=== PATIENT | male | born 1960 | race Caucasian/White ===

== ENCOUNTER 2022-05-27 10:49 | Inpatient (IN) | payer OTHER ==
[2022-05-27 12:53] LABS: BASO % 0.9 % (0-2.0); EOS % 2.3 % (0-4.5); HEMATOCRIT 13.4 % (35.4-49); LYMPH % 7.3 % (8-40); MCH 31.8 pg (25.7-33.7); MCHC 35.8 g/dl (32.0-35.9); MEAN CELL VOLUME 88.9 fl (80-96); MEAN PLT VOLUME 9.7 fl (7.5-11.1); MONO % 2.3 % (3.8-10.2); NEUT % 87.2 % (42.8-82.8); PLATELET COUNT 204 10^3/uL (134-434); RBC 1.51 M/mm3 (4.00-5.60); RDW 13.7 % (11.9-15.9); WHITE BLOOD COUNT 14.6 K/mm3 (4.0-10.0)
[2022-05-27 12:56] LABS: HEMOGLOBIN 4.8 GM/dL (11.7-16.9)
[2022-05-27] MEDS ORDERED: PANTOPRAZOLE SODIUM 40 MG VIAL IVPUSH ONE (12:56)
[2022-05-27 12:59] LABS: INR 1.1 (0.83-1.09); PROTHROMBIN TIME (PATIENT) 12.8 SEC (9.7-13.0)
[2022-05-27 13:02] LABS: ACTIVATED PTT 28.5 SECONDS (25.2-36.5)
[2022-05-27] MEDS ORDERED: PANTOPRAZOLE SODIUM 40 MG/100 ML BAG IVPB ONE (13:04)
[2022-05-27 13:10] LABS: CHLORIDE 111 mmol/L (98-107); SODIUM 136 mmol/L (136-145)
[2022-05-27 13:13] LABS: ALBUMIN 3.3 g/dl (3.4-5.0); BLOOD UREA NITROGEN 70.7 mg/dL (7-18); CALCIUM 8.3 mg/dL (8.5-10.1); GLUCOSE,RANDOM 212 mg/dL (74-106)
[2022-05-27 13:14] LABS: CO2 17 mmol/L (21-32); LIPASE 385 U/L (73-393)
[2022-05-27 13:16] LABS: CREATININE 5.1 mg/dL (0.55-1.3); SGOT/AST 85 U/L (15-37); SGPT/ALT 23 U/L (13-61)
[2022-05-27 13:17] LABS: ANION GAP 8 MMOL/L (8-16); BILIRUBIN,TOTAL 5.7 mg/dL (0.2-1); LACTIC ACID 3.3 mmol/L (0.4-2.0); MAGNESIUM 0.9 mg/dL (1.8-2.4); TOT PROT 6.4 g/dl (6.4-8.2)
[2022-05-27 13:19] LABS: ALK PHOS 88 U/L (45-117)
[2022-05-27] MEDS ORDERED: MAGNESIUM SULF 50% (8.12 MEQ/2 ML-1 GM VIAL) IVPB ONE ×2 (13:20→13:24)
[2022-05-27] MEDS ORDERED: VANCOMYCIN 1 GM in D5W (PRE-DOCKED) 1,000 MG/250 ML IVPB ONE (13:28)
[2022-05-27] MEDS ORDERED: CEFEPIME HCL/D5W 2 GM/50 ML BAG IVPB ONE (13:28)
[2022-05-27] MEDS ORDERED: VANCOMYCIN/WATER FOR INJ (PEG) 1,000 MG/200 ML BAG IVPB ONE (13:48)
[2022-05-27] MEDS ORDERED: CEFEPIME 2 GM/100 ML BAG IVPB ONE (13:48)
[2022-05-27] MEDS ORDERED: MAGNESIUM 4GM/H20 - 4 GM/100 ML IVPB IVPB ONE (14:00)
[2022-05-27 14:31] LABS: INR 1.22 (0.83-1.09); PROTHROMBIN TIME (PATIENT) 14.1 SEC (9.7-13.0)
[2022-05-27 14:34] LABS: ACTIVATED PTT 28.7 SECONDS (25.2-36.5)
[2022-05-27 14:35] LABS: VENOUS BASE EXCESS -9.9 mmol/L (-2-2); VENOUS O2 SATURATION 38.1 % (70-80); VENOUS PCO2 28.8 mmHg (38-52); VENOUS PH 7.338 (7.310-7.410)
[2022-05-27 14:49] LABS: CHLORIDE 111 mmol/L (98-107); SODIUM 135 mmol/L (136-145)
[2022-05-27 14:52] LABS: ALBUMIN 3.3 g/dl (3.4-5.0); BLOOD UREA NITROGEN 76.4 mg/dL (7-18); CALCIUM 8.4 mg/dL (8.5-10.1); CO2 15 mmol/L (21-32); GLUCOSE,RANDOM 202 mg/dL (74-106); MAGNESIUM 1.1 mg/dL (1.8-2.4)
[2022-05-27 14:55] LABS: BILIRUBIN,DIRECT 0.5 mg/dL (0.0-0.2); CREATININE 5.1 mg/dL (0.55-1.3); SGOT/AST 118 U/L (15-37); SGPT/ALT 27 U/L (13-61); TOTAL IRON BINDING CAPACITY 303 ug/dL (250-450)
[2022-05-27 14:56] LABS: BILIRUBIN,TOTAL 5.6 mg/dL (0.2-1)
[2022-05-27 14:57] LABS: TOT PROT 6.3 g/dl (6.4-8.2)
[2022-05-27 14:58] LABS: ALK PHOS 85 U/L (45-117)
[2022-05-27 15:10] LABS: ANION GAP 8 MMOL/L (8-16)
[2022-05-27] MEDS ORDERED: DEXAMETHASONE SOD PHOSPHATE 10 MG/1 ML VIAL IVPUSH ONE (16:16)
[2022-05-27] MEDS ORDERED: FOLIC ACID 1 MG TABLET (FP) PO ONE (16:20)
[2022-05-27] MEDS ORDERED: DEXAMETHASONE SOD PHOSPHATE 10 MG/1 ML VIAL ONE (16:22)
[2022-05-27] MEDS ORDERED: CALCIUM GLUCONATE 10% - 1,000 MG/10 ML VIAL IVPUSH ONE (16:42)
[2022-05-27] MEDS ORDERED: ONDANSETRON 4 MG/2 ML VIAL IVPUSH ONE (16:42)
[2022-05-27] MEDS ORDERED: ALBUTEROL SO4 0.083% IH SOL 2.5 MG/3 ML VIAL.NEB. NEB ONE ×3 (16:42→21:55)
[2022-05-27] MEDS ORDERED: CALCIUM GLUC IN NACL, ISO-OSM 1 GM/50 ML BAG IVPB ONE (16:48)
[2022-05-27] MEDS ORDERED: ONDANSETRON 4 MG/2 ML VIAL ONE (16:48)
[2022-05-27 17:16] LABS: LDH 1052 U/L (87-246)
[2022-05-27] MEDS ORDERED: FOLIC ACID 1 MG TABLET (FP) PO SCH (17:45)
[2022-05-27] MEDS ORDERED: predniSONE 20 MG TABLET (UD) PO ONE (18:02)
[2022-05-27] MEDS: PANTOPRAZOLE SODIUM 40 MG VIAL IVPUSH SCH (18:50)
[2022-05-27] MEDS ORDERED: SODIUM CHLORIDE 500 ML IV STA (18:53)
[2022-05-27 21:07] LABS: BASO % 0.6 % (0-2.0); EOS % 0.5 % (0-4.5); HEMATOCRIT 20.2 % (35.4-49); HEMOGLOBIN 7.4 GM/dL (11.7-16.9); LYMPH % 3.9 % (8-40); MCH 32.3 pg (25.7-33.7); MCHC 36.4 g/dl (32.0-35.9); MEAN CELL VOLUME 88.6 fl (80-96); MEAN PLT VOLUME 9.9 fl (7.5-11.1); MONO % 2.5 % (3.8-10.2); NEUT % 92.5 % (42.8-82.8); PLATELET COUNT 168 10^3/uL (134-434); RBC 2.28 M/mm3 (4.00-5.60); RDW 13.9 % (11.9-15.9); WHITE BLOOD COUNT 10.1 K/mm3 (4.0-10.0)
[2022-05-27 21:28] LABS: CHLORIDE 108 mmol/L (98-107); SODIUM 134 mmol/L (136-145)
[2022-05-27 21:31] LABS: ALBUMIN 3.3 g/dl (3.4-5.0); BLOOD UREA NITROGEN 83.9 mg/dL (7-18); CALCIUM 7.9 mg/dL (8.5-10.1); CO2 13 mmol/L (21-32); GLUCOSE,RANDOM 367 mg/dL (74-106)
[2022-05-27 21:34] LABS: CREATININE 5.2 mg/dL (0.55-1.3); PHOSPHOROUS 2.8 mg/dL (2.5-4.9); SGOT/AST 238 U/L (15-37); SGPT/ALT 35 U/L (13-61)
[2022-05-27] MEDS: HEPARIN NA (PORCINE) 5,000 UNITS/ML 1ML VIAL SQ SCH (21:35)
[2022-05-27 21:36] LABS: BILIRUBIN,TOTAL 4.7 mg/dL (0.2-1); TOT PROT 6.6 g/dl (6.4-8.2)
[2022-05-27] MEDS: MUPIROCIN 2% TOPICAL OINTMENT FOR DECOLONIZATION NS SCH (21:36)
[2022-05-27 21:37] LABS: ALK PHOS 85 U/L (45-117)
[2022-05-27] MEDS: CHLORHEXIDINE GLUCONATE 4% CLEANSER FOR DECOLONIZATION TP SCH (21:37)
[2022-05-27 21:49] LABS: ANION GAP 13 MMOL/L (8-16)
[2022-05-27 21:54] LABS: EPI CELLS 9 /uL (0-25.1); HYALINE CASTS 1 /uL (0-3.1); PH,URINE 5.5 (5.0-8.0); URINE APPEARANCE CLEAR; URINE BACTERIA 4 /uL (0-1359); URINE BILIRUBIN NEGATIVE (NEGATIVE); URINE COLOR RED; URINE GLUCOSE (UA) 2+ (NEGATIVE); URINE KETONE 1+ (NEGATIVE); URINE LEUK ESTERASE TRACE (NEGATIVE); URINE NITRITE NEGATIVE (NEGATIVE); URINE PROTEIN 3+ (NEGATIVE); URINE RBC 31 /uL (0-23.9); URINE UROBILINOGEN 0.2 mg/dL (0.2-1.0); URINE WBC 14 /uL (0-25.8)
[2022-05-27] MEDS ORDERED: INSULIN REGULAR HUMAN 100 UNITS/ML *VIAL IVPUSH ONE (21:58)
[2022-05-27] MEDS ORDERED: MUPIROCIN 2% TOPICAL OINTMENT FOR DECOLONIZATION NS SCH (22:00)
[2022-05-27] MEDS ORDERED: CHLORHEXIDINE GLUCONATE 4% CLEANSER FOR DECOLONIZATION TP SCH (22:00)
[2022-05-27] MEDS ORDERED: INSULIN SLIDING SCALE (NOVOLOG) 1 VIAL SQ SCH (22:00)
[2022-05-27] MEDS: CALCIUM GLUC IN NACL, ISO-OSM 1 GM/50 ML BAG IVPB SCH ×2 (22:04→22:38)
[2022-05-27] MEDS: SODIUM BICARBONATE 8.4% 50 MEQ/50 ML DISP.SYRIN IVPUSH SCH ×3 (22:04→23:02)
[2022-05-27 22:09] LABS: LACTIC ACID 2.6 mmol/L (0.4-2.0)
[2022-05-27] MEDS ORDERED: DEXTROSE 50%-WATER 25 GM/50 ML DISP.SYRIN IVPUSH PRN (22:10)
[2022-05-27 22:13] LABS: ANISOCYTOSIS 1+; PLATELET ESTIMATE ADEQUATE
[2022-05-27 22:34] LABS: YEAST NONE SEEN (NEGATIVE)
[2022-05-27] MEDS ORDERED: FUROSEMIDE 40 MG/4 ML INJECTABLE VIAL IVPUSH ONE (22:50)
[2022-05-27] MEDS ORDERED: SODIUM CHLORIDE 0.45% 1,000 ML with SODIUM BICARBONATE 8.4% - 150 MEQ IV SCH (23:00)
[2022-05-28] MEDS ORDERED: INSULIN (NOVOLOG) ASPART 100 UNITS/ML 10ML VIAL SQ ONE (00:05)
[2022-05-28 01:16] LABS: CALCIUM 8.4 mg/dL (8.5-10.1)
[2022-05-28 01:17] LABS: BLOOD UREA NITROGEN 85.5 mg/dL (7-18); MAGNESIUM 1.9 mg/dL (1.8-2.4)
[2022-05-28 01:19] LABS: URIC ACID 8.6 mg/dL (2.6-7.2)
[2022-05-28 01:20] LABS: PHOSPHOROUS 2.2 mg/dL (2.5-4.9)
[2022-05-28 01:21] LABS: BILIRUBIN,TOTAL 3.2 mg/dL (0.2-1)
[2022-05-28] MEDS ORDERED: INSULIN REGULAR HUMAN 100 UNITS/ML *VIAL* (FOR IVP) IVPUSH ONE (01:26)
[2022-05-28] MEDS ORDERED: SODIUM BICARBONATE 8.4% 50 MEQ/50 ML DISP.SYRIN IVPUSH ONE (01:28)
[2022-05-28] MEDS ORDERED: MAGNESIUM SULF 50% (8.12 MEQ/2 ML-1 GM VIAL) IVPB ONE (01:29)
[2022-05-28] MEDS ORDERED: INSULIN REGULAR 100 UNITS in SODIUM CHLORIDE 99 ML IVPB SCH ×2 (01:30→07:10)
[2022-05-28 01:39] LABS: LDH 1556 U/L (87-246)
[2022-05-28 01:47] LABS: HEMATOCRIT 17.2 % (35.4-49); MCH 31.9 pg (25.7-33.7); MCHC 37.3 g/dl (32.0-35.9); MEAN CELL VOLUME 85.3 fl (80-96); MEAN PLT VOLUME 10.2 fl (7.5-11.1); PLATELET COUNT 149 10^3/uL (134-434); RBC 2.02 M/mm3 (4.00-5.60); RDW 14.2 % (11.9-15.9); WHITE BLOOD COUNT 8.1 K/mm3 (4.0-10.0)
[2022-05-28 01:49] LABS: ADD RBC MORPHOLOGY YES; HEMOGLOBIN 6.4 GM/dL (11.7-16.9)
[2022-05-28] MEDS ORDERED: CALCIUM GLUC IN NACL, ISO-OSM 1 GM/50 ML BAG IVPB ONE (02:12)
[2022-05-28 04:48] LABS: ANISOCYTOSIS 2+; MACROCYTOSIS 0; OVALOCYTE 1+; TEAR DROP CELLS 1+
[2022-05-28] MEDS: HEPARIN NA (PORCINE) 5,000 UNITS/ML 1ML VIAL SQ SCH ×3 (05:56→21:20)
[2022-05-28] MEDS ORDERED: DEXTROSE 5%-WATER - 1,000 ML with SODIUM BICARBONATE 8.4% - 150 MEQ IV SCH (07:30)
[2022-05-28 07:35] LABS: HEMATOCRIT 21.4 % (35.4-49); HEMOGLOBIN 7.8 GM/dL (11.7-16.9); MCH 30.8 pg (25.7-33.7); MCHC 36.6 g/dl (32.0-35.9); MEAN CELL VOLUME 84.2 fl (80-96); MEAN PLT VOLUME 10.1 fl (7.5-11.1); PLATELET COUNT 173 10^3/uL (134-434); RBC 2.54 M/mm3 (4.00-5.60); RDW 13.8 % (11.9-15.9); WHITE BLOOD COUNT 12.7 K/mm3 (4.0-10.0)
[2022-05-28 07:45] LABS: INR 1.12 (0.83-1.09)
[2022-05-28 07:48] LABS: ACTIVATED PTT 25.4 SECONDS (25.2-36.5)
[2022-05-28 08:13] LABS: CALCIUM 9.2 mg/dL (8.5-10.1)
[2022-05-28 08:14] LABS: ALBUMIN 3.1 g/dl (3.4-5.0); MAGNESIUM 2.4 mg/dL (1.8-2.4)
[2022-05-28] MEDS: INSULIN REGULAR 100 UNITS in SODIUM CHLORIDE 99 ML IVPB SCH ×2 (08:15→12:53)
[2022-05-28 08:17] LABS: CREATININE 5.3 mg/dL (0.55-1.3); PHOSPHOROUS 1.9 mg/dL (2.5-4.9)
[2022-05-28 08:19] LABS: BILIRUBIN,TOTAL 2.4 mg/dL (0.2-1); TOT PROT 6.2 g/dl (6.4-8.2)
[2022-05-28] MEDS: SODIUM BICARBONATE 8.4% - 150 MEQ in DEXTROSE 5%-WATER - 1,000 ML IV SCH ×3 (09:07→22:44)
[2022-05-28] MEDS: predniSONE 20 MG TABLET (UD) PO SCH (09:21)
[2022-05-28] MEDS: MUPIROCIN 2% TOPICAL OINTMENT FOR DECOLONIZATION NS SCH ×2 (09:22→21:20)
[2022-05-28] MEDS: PANTOPRAZOLE SODIUM 40 MG VIAL IVPUSH SCH (09:22)
[2022-05-28 10:15] LABS: ANISOCYTOSIS 0; MACROCYTOSIS 0
[2022-05-28] MEDS ORDERED: INSULIN REGULAR HUMAN 100 UNITS/ML *VIAL IVPUSH ONE (10:19)
[2022-05-28] MEDS: CEFTRIAXONE 1 GM in DEXTROSE 5%-WATER - 50 ML IVPB SCH (16:15)
[2022-05-28] MEDS: FOLIC ACID 1 MG TABLET (FP) PO SCH (17:21)
[2022-05-28] MEDS: CHLORHEXIDINE GLUCONATE 4% CLEANSER FOR DECOLONIZATION TP SCH (21:20)
[2022-05-28] MEDS: INSULIN (LEVEMIR) 100 UNITS/ML UNITS SQ SCH (21:22)
[2022-05-28] MEDS: INSULIN SLIDING SCALE (NOVOLOG) 1 VIAL SQ SCH (21:22)
[2022-05-28 21:59] LABS: HEMATOCRIT 19.4 % (35.4-49); MCH 30.1 pg (25.7-33.7); MCHC 36.2 g/dl (32.0-35.9); MEAN CELL VOLUME 83.3 fl (80-96); PLATELET COUNT 189 10^3/uL (134-434); RBC 2.33 M/mm3 (4.00-5.60); RDW 14.3 % (11.9-15.9); WHITE BLOOD COUNT 15.2 K/mm3 (4.0-10.0)
[2022-05-28 22:07] LABS: CALCIUM 8.3 mg/dL (8.5-10.1)
[2022-05-28 22:08] LABS: BLOOD UREA NITROGEN 82.2 mg/dL (7-18); MAGNESIUM 1.8 mg/dL (1.8-2.4)
[2022-05-28 22:11] LABS: BILIRUBIN,DIRECT 0.2 mg/dL (0.0-0.2); CREATININE 5.4 mg/dL (0.55-1.3); PHOSPHOROUS 1.8 mg/dL (2.5-4.9)
[2022-05-28 22:12] LABS: BILIRUBIN,TOTAL 0.9 mg/dL (0.2-1); TOT PROT 5.9 g/dl (6.4-8.2)
[2022-05-29] MEDS: SODIUM CHLORIDE 1,000 ML IV SCH
[2022-05-29] MEDS: HEPARIN NA (PORCINE) 5,000 UNITS/ML 1ML VIAL SQ SCH ×3 (06:25→21:25)
[2022-05-29] MEDS: INSULIN SLIDING SCALE (NOVOLOG) 1 VIAL SQ SCH ×4 (06:30→21:27)
[2022-05-29 07:15] LABS: BASO % 0.2 % (0-2.0); EOS % 0.1 % (0-4.5); HEMOGLOBIN 7.1 GM/dL (11.7-16.9); LYMPH % 8.4 % (8-40); MCH 31.3 pg (25.7-33.7); MCHC 37.4 g/dl (32.0-35.9); MEAN CELL VOLUME 83.5 fl (80-96); MONO % 6.9 % (3.8-10.2); NEUT % 84.4 % (42.8-82.8); PLATELET COUNT 215 10^3/uL (134-434); RBC 2.28 M/mm3 (4.00-5.60); RDW 14.3 % (11.9-15.9); WHITE BLOOD COUNT 15.6 K/mm3 (4.0-10.0)
[2022-05-29] MEDS: SODIUM BICARBONATE 8.4% - 150 MEQ in DEXTROSE 5%-WATER - 1,000 ML IV SCH (07:26)
[2022-05-29 07:30] LABS: CHLORIDE 102 mmol/L (98-107); SODIUM 137 mmol/L (136-145)
[2022-05-29 07:33] LABS: ANION GAP 7 MMOL/L (8-16); BLOOD UREA NITROGEN 78.2 mg/dL (7-18); CO2 27 mmol/L (21-32); GLUCOSE,RANDOM 177 mg/dL (74-106); MAGNESIUM 1.7 mg/dL (1.8-2.4)
[2022-05-29 07:36] LABS: CREATININE 5.1 mg/dL (0.55-1.3); PHOSPHOROUS 3.3 mg/dL (2.5-4.9)
[2022-05-29 07:37] LABS: BILIRUBIN,DIRECT 0.2 mg/dL (0.0-0.2)
[2022-05-29 07:39] LABS: BILIRUBIN,TOTAL 0.8 mg/dL (0.2-1)
[2022-05-29 07:42] LABS: LDH 740 U/L (87-246)
[2022-05-29] MEDS: CEFTRIAXONE 1 GM in DEXTROSE 5%-WATER - 50 ML IVPB SCH (09:17)
[2022-05-29] MEDS: FOLIC ACID 1 MG TABLET (FP) PO SCH (09:19)
[2022-05-29] MEDS: PANTOPRAZOLE SODIUM 40 MG VIAL IVPUSH SCH (09:19)
[2022-05-29] MEDS: predniSONE 20 MG TABLET (UD) PO SCH (09:19)
[2022-05-29] MEDS: MUPIROCIN 2% TOPICAL OINTMENT FOR DECOLONIZATION NS SCH ×2 (09:20→21:25)
[2022-05-29] MEDS ORDERED: MAGNESIUM 1GM/D5W - 1 GM/100 ML IVPB IVPB ONE (10:00)
[2022-05-29] MEDS: INSULIN REGULAR 100 UNITS in SODIUM CHLORIDE 99 ML IVPB SCH (15:37)
[2022-05-29] MEDS: INSULIN (LEVEMIR) 100 UNITS/ML UNITS SQ SCH (21:26)
[2022-05-29] MEDS: CHLORHEXIDINE GLUCONATE 4% CLEANSER FOR DECOLONIZATION TP SCH (21:26)
[2022-05-29] MEDS: MELATONIN 1 MG TABLET PO SCH (21:27)
[2022-05-29] MEDS: ATORVASTATIN CA 80 MG TABLET (FP) PO SCH (21:27)
[2022-05-30] MEDS ORDERED: INSULIN (NOVOLOG) ASPART 100 UNITS/ML 10ML VIAL SQ ONE (01:42)
[2022-05-30] MEDS: SODIUM CHLORIDE 1,000 ML IV SCH ×2 (02:13→22:12)
[2022-05-30] MEDS: HEPARIN NA (PORCINE) 5,000 UNITS/ML 1ML VIAL SQ SCH ×3 (06:04→22:12)
[2022-05-30] MEDS: INSULIN SLIDING SCALE (NOVOLOG) 1 VIAL SQ SCH ×4 (06:04→22:15)
[2022-05-30] MEDS ORDERED: INSULIN (LEVEMIR) 100 UNITS/ML UNITS SQ SCH (07:00)
[2022-05-30 07:09] LABS: BASO % 0.2 % (0-2.0); EOS % 0.2 % (0-4.5); HEMATOCRIT 18.8 % (35.4-49); LYMPH % 10.2 % (8-40); MCH 30.5 pg (25.7-33.7); MCHC 35.5 g/dl (32.0-35.9); MEAN CELL VOLUME 85.9 fl (80-96); MEAN PLT VOLUME 9.6 fl (7.5-11.1); MONO % 6.8 % (3.8-10.2); NEUT % 82.6 % (42.8-82.8); PLATELET COUNT 217 10^3/uL (134-434); RBC 2.18 M/mm3 (4.00-5.60); RDW 14.6 % (11.9-15.9)
[2022-05-30 07:19] LABS: ACTIVATED PTT 23.1 SECONDS (25.2-36.5); ALBUMIN 2.7 g/dl (3.4-5.0); BLOOD UREA NITROGEN 71.5 mg/dL (7-18); MAGNESIUM 1.7 mg/dL (1.8-2.4)
[2022-05-30 07:22] LABS: CREATININE 4.5 mg/dL (0.55-1.3); PHOSPHOROUS 3.6 mg/dL (2.5-4.9)
[2022-05-30 07:23] LABS: BILIRUBIN,TOTAL 0.5 mg/dL (0.2-1)
[2022-05-30 07:24] LABS: TOT PROT 5.5 g/dl (6.4-8.2)
[2022-05-30 07:38] LABS: HEMOGLOBIN 6.7 GM/dL (11.7-16.9)
[2022-05-30] MEDS: CEFTRIAXONE 1 GM in DEXTROSE 5%-WATER - 50 ML IVPB SCH (09:31)
[2022-05-30] MEDS: predniSONE 20 MG TABLET (UD) PO SCH (09:31)
[2022-05-30] MEDS: PANTOPRAZOLE 40 MG TABLET PO SCH (09:31)
[2022-05-30] MEDS: MUPIROCIN 2% TOPICAL OINTMENT FOR DECOLONIZATION NS SCH (09:32)
[2022-05-30] MEDS: INSULIN (LEVEMIR) 100 UNITS/ML UNITS SQ SCH ×2 (09:32→22:13)
[2022-05-30] MEDS ORDERED: FOLIC ACID 1 MG TABLET (FP) PO SCH (10:00)
[2022-05-30 14:39] LABS: INR 1.05 (0.83-1.09); PROTHROMBIN TIME (PATIENT) 12.2 SEC (9.7-13.0)
[2022-05-30 16:35] LABS: EPI CELLS 4 /uL (0-25.1); HYALINE CASTS 0 /uL (0-3.1); PH,URINE 7.5 (5.0-8.0); URINE APPEARANCE CLEAR; URINE BACTERIA 1 /uL (0-1359); URINE BILIRUBIN NEGATIVE (NEGATIVE); URINE COLOR YELLOW; URINE GLUCOSE (UA) NEGATIVE (NEGATIVE); URINE KETONE NEGATIVE (NEGATIVE); URINE LEUK ESTERASE NEGATIVE (NEGATIVE); URINE NITRITE NEGATIVE (NEGATIVE); URINE PROTEIN TRACE (NEGATIVE); URINE RBC 25 /uL (0-23.9); URINE UROBILINOGEN 0.2 mg/dL (0.2-1.0); URINE WBC 7 /uL (0-25.8)
[2022-05-30] MEDS: MELATONIN 1 MG TABLET PO SCH (22:12)
[2022-05-30] MEDS: ATORVASTATIN CA 80 MG TABLET (FP) PO SCH (22:12)
[2022-05-31 03:21] LABS: CMV IgM < 30.0 AU/mL (0.0-29.9)
[2022-05-31] MEDS: HEPARIN NA (PORCINE) 5,000 UNITS/ML 1ML VIAL SQ SCH ×3 (06:55→22:31)
[2022-05-31] MEDS: INSULIN SLIDING SCALE (NOVOLOG) 1 VIAL SQ SCH ×4 (06:56→22:38)
[2022-05-31 09:07] LABS: HEMATOCRIT 23.6 % (35.4-49); HEMOGLOBIN 8.3 GM/dL (11.7-16.9); MCH 30.5 pg (25.7-33.7); MCHC 35.1 g/dl (32.0-35.9); MEAN PLT VOLUME 9.3 fl (7.5-11.1); PLATELET COUNT 245 10^3/uL (134-434); RBC 2.71 M/mm3 (4.00-5.60); RDW 14.8 % (11.9-15.9); WHITE BLOOD COUNT 11.8 K/mm3 (4.0-10.0)
[2022-05-31 09:39] LABS: BLOOD UREA NITROGEN 57.2 mg/dL (7-18)
[2022-05-31 09:40] LABS: ALBUMIN 2.7 g/dl (3.4-5.0)
[2022-05-31 09:41] LABS: BILIRUBIN,TOTAL 0.6 mg/dL (0.2-1); TOT PROT 5.7 g/dl (6.4-8.2)
[2022-05-31 09:43] LABS: CREATININE 3.8 mg/dL (0.55-1.3)
[2022-05-31] MEDS: PANTOPRAZOLE 40 MG TABLET PO SCH (11:02)
[2022-05-31] MEDS: FOLIC ACID 1 MG TABLET (FP) PO SCH (11:02)
[2022-05-31] MEDS: INSULIN (LEVEMIR) 100 UNITS/ML UNITS SQ SCH ×2 (11:03→22:37)
[2022-05-31] MEDS: predniSONE 20 MG TABLET (UD) PO SCH (11:03)
[2022-05-31] MEDS: SODIUM CHLORIDE 1,000 ML IV SCH (11:17)
[2022-05-31] MEDS: SODIUM CHLORIDE 0.45% 1,000 ML IV SCH (16:00)
[2022-05-31 17:07] LABS: PARV B19 IGG 5.2 index (0.0-0.8); PARV B19 IGM 0.1 index (0.0-0.8)
[2022-05-31] MEDS: MELATONIN 1 MG TABLET PO SCH (22:36)
[2022-05-31] MEDS: ATORVASTATIN CA 80 MG TABLET (FP) PO SCH (22:36)
[2022-05-31 23:07] LABS: ATYPICAL pANCA <1:20 titer (Neg:<1:20); C-ANCA <1:20 titer (Neg:<1:20)
[2022-06-01] MEDS: HEPARIN NA (PORCINE) 5,000 UNITS/ML 1ML VIAL SQ SCH ×3 (06:35→22:04)
[2022-06-01] MEDS: INSULIN SLIDING SCALE (NOVOLOG) 1 VIAL SQ SCH ×4 (06:37→22:08)
[2022-06-01 09:19] LABS: ALBUMIN 2.7 g/dl (3.4-5.0); BLOOD UREA NITROGEN 54.9 mg/dL (7-18); CALCIUM 7.3 mg/dL (8.5-10.1)
[2022-06-01 09:22] LABS: CREATININE 3.4 mg/dL (0.55-1.3)
[2022-06-01 09:23] LABS: BILIRUBIN,TOTAL 0.5 mg/dL (0.2-1); TOT PROT 5.6 g/dl (6.4-8.2)
[2022-06-01] MEDS: PANTOPRAZOLE 40 MG TABLET PO SCH (10:26)
[2022-06-01] MEDS: INSULIN (LEVEMIR) 100 UNITS/ML UNITS SQ SCH ×2 (10:26→22:06)
[2022-06-01] MEDS: FOLIC ACID 1 MG TABLET (FP) PO SCH (10:26)
[2022-06-01] MEDS: predniSONE 20 MG TABLET (UD) PO SCH (10:26)
[2022-06-01] MEDS: SODIUM CHLORIDE 0.45% 1,000 ML IV SCH (15:09)
[2022-06-01 16:05] VITALS: BMI 26.5
[2022-06-01 16:10] LABS: HEMATOCRIT 27.4 % (35.4-49); HEMOGLOBIN 9.6 GM/dL (11.7-16.9); MCH 30.8 pg (25.7-33.7); MCHC 35.1 g/dl (32.0-35.9); MEAN CELL VOLUME 87.7 fl (80-96); MEAN PLT VOLUME 9.4 fl (7.5-11.1); PLATELET COUNT 290 10^3/uL (134-434); RBC 3.12 M/mm3 (4.00-5.60); RDW 15.3 % (11.9-15.9); WHITE BLOOD COUNT 12.8 K/mm3 (4.0-10.0)
[2022-06-01 16:34] LABS: CHLORIDE 113 mmol/L (98-107); SODIUM 142 mmol/L (136-145)
[2022-06-01 16:37] LABS: ANION GAP 8 MMOL/L (8-16); BLOOD UREA NITROGEN 48.9 mg/dL (7-18); CO2 21 mmol/L (21-32); GLUCOSE,RANDOM 247 mg/dL (74-106)
[2022-06-01 16:40] LABS: CREATININE 3.2 mg/dL (0.55-1.3); SGOT/AST 23 U/L (15-37); SGPT/ALT 39 U/L (13-61)
[2022-06-01 16:42] LABS: BILIRUBIN,TOTAL 0.5 mg/dL (0.2-1); TOT PROT 6.5 g/dl (6.4-8.2)
[2022-06-01 16:43] LABS: ALK PHOS 75 U/L (45-117)
[2022-06-01 16:58] LABS: ALBUMIN 3.2 g/dl (3.4-5.0); CALCIUM 6.9 mg/dL (8.5-10.1)
[2022-06-01] MEDS: MELATONIN 1 MG TABLET PO SCH (22:03)
[2022-06-01] MEDS: ATORVASTATIN CA 80 MG TABLET (FP) PO SCH (22:04)
[2022-06-02] MEDS: HEPARIN NA (PORCINE) 5,000 UNITS/ML 1ML VIAL SQ SCH ×3 (06:51→21:11)
[2022-06-02] MEDS: INSULIN SLIDING SCALE (NOVOLOG) 1 VIAL SQ SCH ×4 (06:54→21:14)
[2022-06-02 10:02] LABS: HEMATOCRIT 25.6 % (35.4-49); HEMOGLOBIN 9.1 GM/dL (11.7-16.9); MCHC 35.5 g/dl (32.0-35.9); MEAN CELL VOLUME 87.4 fl (80-96); MEAN PLT VOLUME 9.6 fl (7.5-11.1); PLATELET COUNT 278 10^3/uL (134-434); RBC 2.93 M/mm3 (4.00-5.60); RDW 15.1 % (11.9-15.9); WHITE BLOOD COUNT 12.8 K/mm3 (4.0-10.0)
[2022-06-02 10:25] LABS: ALBUMIN 2.9 g/dl (3.4-5.0); CALCIUM 7.2 mg/dL (8.5-10.1)
[2022-06-02 10:26] LABS: BLOOD UREA NITROGEN 45.6 mg/dL (7-18)
[2022-06-02 10:27] LABS: CREATININE 2.9 mg/dL (0.55-1.3)
[2022-06-02 10:29] LABS: TOT PROT 5.9 g/dl (6.4-8.2)
[2022-06-02 10:30] LABS: BILIRUBIN,TOTAL 0.5 mg/dL (0.2-1)
[2022-06-02] MEDS: predniSONE 20 MG TABLET (UD) PO SCH (10:34)
[2022-06-02] MEDS: PANTOPRAZOLE 40 MG TABLET PO SCH (10:34)
[2022-06-02] MEDS: FOLIC ACID 1 MG TABLET (FP) PO SCH (10:34)
[2022-06-02] MEDS: INSULIN (LEVEMIR) 100 UNITS/ML UNITS SQ SCH ×2 (10:34→21:13)
[2022-06-02] MEDS ORDERED: SODIUM CHLORIDE 0.45% 1,000 ML IV SCH (15:15)
[2022-06-02] MEDS ORDERED: INSULIN (NOVOLOG) ASPART 100 UNITS/ML 10ML VIAL ONE (20:36)
[2022-06-02] MEDS: MELATONIN 1 MG TABLET PO SCH (21:14)
[2022-06-02] MEDS: ATORVASTATIN CA 80 MG TABLET (FP) PO SCH (21:17)
[2022-06-03] MEDS: HEPARIN NA (PORCINE) 5,000 UNITS/ML 1ML VIAL SQ SCH ×2 (06:04→13:19)
[2022-06-03] MEDS: INSULIN SLIDING SCALE (NOVOLOG) 1 VIAL SQ SCH ×2 (06:04→10:55)
[2022-06-03] MEDS: PANTOPRAZOLE 40 MG TABLET PO SCH (09:55)
[2022-06-03] MEDS: FOLIC ACID 1 MG TABLET (FP) PO SCH (09:55)
[2022-06-03] MEDS: predniSONE 20 MG TABLET (UD) PO SCH (09:55)
[2022-06-03] MEDS: INSULIN (LEVEMIR) 100 UNITS/ML UNITS SQ SCH (09:56)
[2022-06-03 10:19] LABS: CHLORIDE 119 mmol/L (98-107); SODIUM 147 mmol/L (136-145)
[2022-06-03 10:20] LABS: HEMATOCRIT 23.6 % (35.4-49); HEMOGLOBIN 8.2 GM/dL (11.7-16.9); MCH 30.1 pg (25.7-33.7); MCHC 34.7 g/dl (32.0-35.9); MEAN CELL VOLUME 86.8 fl (80-96); PLATELET COUNT 241 10^3/uL (134-434); RBC 2.72 M/mm3 (4.00-5.60); RDW 15.3 % (11.9-15.9)
[2022-06-03 10:21] LABS: ALBUMIN 2.5 g/dl (3.4-5.0); ANION GAP 7 MMOL/L (8-16); BLOOD UREA NITROGEN 41.2 mg/dL (7-18); CO2 21 mmol/L (21-32); GLUCOSE,RANDOM 144 mg/dL (74-106)
[2022-06-03 10:24] LABS: CREATININE 2.6 mg/dL (0.55-1.3); SGOT/AST 11 U/L (15-37); SGPT/ALT 29 U/L (13-61)
[2022-06-03 10:26] LABS: ALK PHOS 55 U/L (45-117); BILIRUBIN,TOTAL 0.4 mg/dL (0.2-1); TOT PROT 5.2 g/dl (6.4-8.2)
[2022-06-03 10:27] LABS: CALCIUM 6.8 mg/dL (8.5-10.1)
[2022-06-03] MEDS ORDERED: INSULIN (NOVOLOG) ASPART 100 UNITS/ML 10ML VIAL ONE (10:51)
[2022-06-03] MEDS ORDERED: CALCIUM GLUCONATE IN NACL 1 GM/50 ML BAG IVPB ONE (11:30)
[2022-06-03] MEDS ORDERED: CALCIUM CARBONATE 650 MG TABLET PO SCH (11:30)
[2022-06-03 13:41] VITALS: BP 138/76; PULSE 80; RESP 18; TEMP 99.1
== END 2022-06-03 16:22 | disposition home or self-care (01) | DRG 660 ==
LOC: JER 10:49 → JERBED 12:59 → JICU 18:10 → J8W 05-30 20:34
PROVIDERS: ADMIT Internal Medicine Pulmonary Disease; ATTEND Internal Medicine
PROC: 30233N1 Transfusion of Nonautologous Red Blood Cells into Peripheral Vein, Percutaneous Approach (ICD-10-PCS; principal; 2022-05-27)
DX: D59.19 Other autoimmune hemolytic anemia (principal); E87.20 Acidosis, unspecified; N17.9 Acute kidney failure, unspecified; E87.5 Hyperkalemia; I48.91 Unspecified atrial fibrillation; R17 Unspecified jaundice; E11.65 Type 2 diabetes mellitus with hyperglycemia; I10 Essential (primary) hypertension; E78.5 Hyperlipidemia, unspecified; R80.9 Proteinuria, unspecified; R31.9 Hematuria, unspecified
CPT/HCPCS: 0241U-QW; 36415; 36511; 71045-TC-FY; 71250-TC; 74176-TC; 80048; 80053; 80076; 81003; 82010; 82248; 82272; 82550; 82728; 82803; 82962; 83010; 83520; 83550; 83605; 83615; 83690; 83735; 84100; 84132; 84155; 84165; 84436; 84439; 84443; 84466; 84478; 84479; 84484; 84550; 85025; 85027; 85045; 85379; 85384; 85610; 85651; 85730; 86038; 86140; 86160; 86225; 86256; 86308; 86644; 86645; 86663; 86664; 86704; 86705; 86709; 86747; 86803; 86850; 86870; 86880; 86900; 86901; 86902; 86922; 87040; 87086; 87186; 87340; 87497; 87517; 87798; 87799; 93005; 93010; 93306-TC; 93970-TC; 93975; 94640; 97116-GP; 97161-GP; 99285-25; J1100; J1644; P9038; P9058